=== PATIENT | male | born 1995 | race Caucasian/White ===

== ENCOUNTER 2021-03-05 09:48 | Emergency (ER) | payer OTHER, SELFPAY ==
--- NOTE | ~2021-03-05 | XR_ITS ---
EXAMINATION: RIGHT HAND/WRIST CLINICAL INFORMATION: Punched countertop, hand pain and swelling. COMPARISON: None TECHNIQUE: 4 views FINDINGS: There is no visible fracture, dislocation or subluxation. The soft tissues are normal. The carpal scaphoid bone is unremarkable. XR/XR hand wrist RT IMPRESSION: Remarkable right hand and wrist exam.
[2021-03-05 09:59] VITALS: BP 131/67; PULSE 80; RESP 18; TEMP 36.7; O2SAT 97; BMI 29.2
--- NOTE | 2021-03-05 11:13 | ED.EXTPRO ---
HPI - Extremity Problem General Chief complaint: Extremity Injury, Upper Stated complaint: rt hand injury Time Seen by Provider: 03/05/21 10:34 Source: patient and family Mode of arrival: ambulatory Limitations: no limitations History of Present Illness HPI Narrative: 25-year-old male presenting to the ED with complaints of right hand pain after he punched a countertop last night. Denies any numbness or tingling or any other symptoms complaints or concerns at this time. MD Complaint: extremity pain Onset (ago): day(s) (Since yesterday worse today) Pain Consistency: constant Location: right and upper extremity (Hand) Severity scale (1-10): >10 Quality: aching and constant Radiation: none Relieving factors: rest Exacerbating factors: range of motion and palpation Associated symptoms: denies other symptoms Related Data Previous Rx's Medication Instructions Recorded acetaminophen [Tylenol Extra 1,000 mg PO QID PRN #14 tab 03/05/21 Strength] ibuprofen 800 mg PO Q8H PRN #14 tab 03/05/21 oxycodone 5 mg PO BID PRN #10 tab 03/05/21 Allergies Allergy/AdvReac Type Severity Reaction Status Date / Time No Known Allergies Allergy Unverified 07/25/20 16:37 Review of Systems Review of Systems: Constitutional : No changes in activity, No lethargy, No recent prior head injury, No agitation, No increased fussiness ENT/Mouth : No Ear Pain, No Nasal discharge/drainage Eyes: No Eye Pain, No Swelling, No Redness, No Foreign Body, No Vision Changes Cardiovascular : No Chest Pain, No SOB Respiratory : No Cough Gastrointestinal : No Nausea, No Vomiting, No abdominal Pain Genitourinary : No Dysuria, No Urinary Frequency, No Urinary Incontinence, No Urgency, No Flank Pain Musculoskeletal : + joint pain, No neck stiffness, No back pain/injury Skin : No lacerations Neuro : No unsteady gait, No Paresthesias, No Loss of Consciousness, No altered mental status, No Headache Yes all other systems are reviewed and are negative [facility] Past Medical History Attestation statement: The following information was validated with the patient. Medical History Patient denies significant medical history Surgical History No significant past surgical history Social History Social History Smoked in Last 30 Days: No Use of substances other than those prescribed or required for medical reasons: Yes Substance Use Type: Marijuana Substance Use Frequency: Daily Advance Directives: No Advance Directives Information Provided: No Physical Exam Vital Signs: Vital Signs: Last Vital Signs Temp 98.0 F 03/05/21 09:59 Pulse 80 03/05/21 09:59 Resp 18 03/05/21 09:59 BP 131/67 03/05/21 09:59 Pulse Ox 97 03/05/21 09:59 Body Mass Index 29.2 vital signs have been reviewed as normal and appeared to be correct. Blood pressure normal. Heart rate normal. Respiration rate normal. Temperature normal. Oxygen saturation normal. Appearance: Alert. Oriented X3. No acute distress. Head: Normal external exam. Normocephalic. Atraumatic. Eyes: PERRLA. EOMI. Conjunctiva and sclera normal. Eyelids normal. ENT: Pharynx normal. Uvula midline. Moist mucous membranes. Neck: Normal inspection. Neck supple. FROM. No adenopathy. Thyroid Normal. No meningeal signs. No neck mass noted. CVS: Normal heart rate and rhythm. Heart sound normal. No murmurs noted. Pulses normal throughout. Respiratory: No respiratory distress. Painless inspiration. Breath sounds normal. No wheezes/rales/rhonchi noted. Chest nontender. No accessory muscle usage noted or decreased air movement noted. Back: Full range of motion noted. Skin: Skin warm and dry. Normal skin color. Normal skin turgor. No rashes/lesions/lacerations noted. Extremities: Patient with tenderness to palpation with soft tissue swelling at the proximal aspect of the 4th/5th metacarpals. No obvious deformities. Patient has full range of motion of all fingers and wrist joint. Otherwise all other Extremities exhibit normal range of motion and nontender. Neuro: Oriented X 3. No motor deficit. No sensory deficit. Reflexes normal. Course Course Course Narrative: Radiologist read x-ray negative although when I reviewed the images it appears that the patient has a mildly displaced proximal 5th metacarpal fracture. Therefore will place in a splint treat symptomatically and instructions to follow-up with orthopedics within the next week or 2. Patient and significant other at bedside understand and agree with this plan. Procedures Orthopedic Splinting/Casting Injury #1: Side: right Upper Extremity Injury Location: hand Upper Extremity Immobilizer: volar splint MDM - Extremity (Nontraumatic) Imaging Data Right hand x-ray: Attestation: I personally reviewed and interpreted this imaging study as follows: Radiologist's impression: FINDINGS: There is no visible fracture, dislocation or subluxation. The soft tissues are normal. The carpal scaphoid bone is unremarkable. XR/XR hand wrist RT IMPRESSION: Remarkable right hand and wrist exam. Discharge Plan Discharge Clinical Impression: Fracture of hand Patient Disposition: Home, Self-Care Instructions: Hand Fracture (ED), Boxer Fracture (ED) Prescriptions: New ibuprofen 800 mg tablet 800 mg PO Q8H PRN (Reason: pain) Qty: 14 RF: 0 acetaminophen [Tylenol Extra Strength] 500 mg tablet 1,000 mg PO QID PRN (Reason: fever or pain) Qty: 14 RF: 0 oxycodone 5 mg tablet 5 mg PO BID PRN (Reason: pain) Qty: 10 RF: 0 Referrals: Marjan Ray MD [Physician] - 2 days (Call today to make a follow-up appointment within the next week or two) Stand Alone Forms: Work/School Release Print Language: Nepalese
--- NOTE | 2021-03-05 11:18 | PC.NURSE ---
DESTINEE MORRIS TO CONSULT WITH DESTINEE REDMAN [facility] RE: POC
== END 2021-03-05 11:55 | disposition home or self-care (01) ==
PROVIDERS: Emergency Provider Emergency Medicine Emergency Medical Services
DX: S62.91XA Unspecified fracture of right hand, initial encounter for closed fracture (principal); M79.641 Pain in right hand; Y92.009 Unspecified place in unspecified non-institutional (private) residence as the place of occurrence of the external cause; X58.XXXA Exposure to other specified factors, initial encounter; Y93.9 Activity, unspecified; Y99.9 Unspecified external cause status; F12.90 Cannabis use, unspecified, uncomplicated; Z79.899 Other long term (current) drug therapy
CPT/HCPCS: 29125; 73110; 73130; 99284

== ENCOUNTER 2021-03-10 16:00 | Outpatient (REF) | payer OTHER, SELFPAY ==
--- NOTE | ~2021-03-10 | XR_ITS ---
EXAMINATION: XR HAND, RIGHT CLINICAL INFORMATION: M79.641 - Pain in right hand COMPARISON: Radiographs right hand and wrist 03/05/2021 TECHNIQUE: The right hand is imaged in 4 views. FINDINGS: There is subtle intra-articular fracture involving the base fifth metacarpal. Subtle cortical step off is noted at the articular surface and lateral side. No angulation or dislocation or destructive process. The remainder the bony structures appear intact. XR/XR hand RT min 3V IMPRESSION: Intra-articular fracture base fifth metacarpal.
== END 2021-03-10 16:01 | disposition home or self-care (01) ==
LOC: HO.HOSX 16:00
PROVIDERS: Visit Provider Orthopaedic Surgery
DX: M79.641 Pain in right hand (principal)
CPT/HCPCS: 73130

== ENCOUNTER → 2021-03-11 08:26 | Outpatient (BNVA) | payer OTHER, SELFPAY | PROVIDERS: Visit Provider Orthopaedic Surgery | DX: M79.641 Pain in right hand (principal) ==

== ENCOUNTER 2021-04-08 08:10 | Outpatient (REF) | payer OTHER, SELFPAY ==
--- NOTE | ~2021-04-08 | XR_ITS ---
EXAMINATION: XR HAND, RIGHT CLINICAL INFORMATION: Pain COMPARISON: Previous x-rays February and March 2021 TECHNIQUE: PA, lateral, and oblique views of the right hand. FINDINGS: There is a minimally displaced fracture through the base of the fifth metacarpal bone intra-articular with the SNF joint. Fracture line is still seen. This does not appear appreciably changed from previous exams. No other fracture is seen. Joint spaces are otherwise normal. XR/XR hand RT min 3V IMPRESSION: No change in the fracture of the base of the fifth metacarpal bone intra-articular with the SNF joint.
== END 2021-04-08 08:11 | disposition home or self-care (01) ==
LOC: HO.HOSX 08:10
PROVIDERS: Visit Provider Orthopaedic Surgery
DX: M79.641 Pain in right hand (principal); S62.316D Displaced fracture of base of fifth metacarpal bone, right hand, subsequent encounter for fracture with routine healing
CPT/HCPCS: 73130